=== PATIENT | female | born 1950 | race Caucasian/White ===

== ENCOUNTER 2024-08-26 18:24 | Emergency (ER) | payer MEDICARE, OTHER ==
[~2024-08-26] VITALS: Ht 162.6 cm; Wt 65.8 kg
[2024-08-26] MEDS ORDERED: KETOROLAC TROMETHAMINE INJ 30 MG/ML VIAL ONE (18:56)
[2024-08-26] MEDS: KETOROLAC TROMETHAMINE INJ 30 MG/ML VIAL IM ONE (19:03)
[2024-08-26] MEDS ORDERED: TRAM50TA2 PO (20:27)
[2024-08-26 21:05] VITALS: BP 145/82; TEMP 98.1; O2SAT 98
== END 2024-08-26 21:06 | disposition home or self-care (01) ==
LOC: ER 18:26
DX: M54.42 Lumbago with sciatica, left side (principal); I10 Essential (primary) hypertension
CPT/HCPCS: 99285; 72131; 96372; 72192; J1885